=== PATIENT | male | born 1950 ===

== ENCOUNTER 2018-07-08 09:24 | Emergency (ER) | payer SELFPAY ==
[2018-07-08 11:15] LABS: SQUAMOUS EPITHIAL 41 /hpf (0-5); URINE BACTERIA OCC (<OCC); URINE BILIRUBIN NEGATIVE (NEGATIVE); URINE BLOOD NEGATIVE (NEGATIVE); URINE CLARITY Hazy (Clear); URINE COLOR Amber (YELLOW); URINE GLUCOSE (UA) NORMAL (Normal); URINE LEUKOCYTE ESTERASE 3+ Leu/uL (Negative); URINE PROTEIN NEGATIVE (NEGATIVE)
--- NOTE | 2018-07-08 11:26 | C.PDOC ---
History Of Present Illness 68-year-old male, presents to the ED for evaluation of increased urinary frequency for the last four years. Patient notices his symptoms especially at night, noting that he often has to use the bathroom multiple times. Patient denies fever, chills, dysuria, abdominal pain or flank pain. Patient reports past medical history of DM, but states his sugar is well controlled. Time Seen by Provider: 07/08/18 10:05 Chief Complaint (Nursing): Male Genitourinary History Per: Patient History/Exam Limitations: no limitations Onset/Duration Of Symptoms: Other (4 years ) Current Symptoms Are (Timing): Still Present Quality Of Discomfort: denies: "Pain" Associated Symptoms: Urinary Symptoms (urinary frequency ). denies: Fever, Chills Additional History Per: Patient Past Medical History Reviewed: Historical Data, Nursing Documentation, Vital Signs Vital Signs: Last Vital Signs Temp 99.2 F 07/08/18 11:37 Pulse 76 07/08/18 11:37 Resp 18 07/08/18 11:37 BP 156/90 H 07/08/18 11:37 Pulse Ox 96 07/08/18 21:39 - Medical History PMH: No Chronic Diseases Surgical History: No Surg Hx Family History: States: Unknown Family Hx - Social History Hx Alcohol Use: No Hx Substance Use: No Review Of Systems Constitutional: Negative for: Fever, Chills Gastrointestinal: Negative for: Abdominal Pain Genitourinary: Positive for: Frequency Musculoskeletal: Negative for: Other (flank pain ) Physical Exam - Physical Exam Appears: Non-toxic, No Acute Distress Skin: Normal Color, Warm, Dry Head: Atraumatic, Normacephalic Eye(s): bilateral: Normal Inspection Oral Mucosa: Moist Neck: Supple Chest: Symmetrical, No Deformity, No Tenderness Cardiovascular: Rhythm Regular, No Murmur Respiratory: Normal Breath Sounds, No Rales, No Rhonchi, No Wheezing Gastrointestinal/Abdominal: Soft, No Tenderness, No Guarding, No Rebound Back: No CVA Tenderness, No Vertebral Tenderness, No Paraspinal Tenderness Extremity: Normal ROM, Capillary Refill (less than 2 seconds ) Neurological/Psych: Oriented x3, Normal Speech, Normal Cognition ED Course And Treatment O2 Sat by Pulse Oximetry: 96 (on RA) Pulse Ox Interpretation: Normal Progress Note: Accucheck and urinalysis done. Results are within normal limits. On reassessment, patient is resting comfortably, showing no signs of distress and is stable for discharge. Patient is advised to follow up with urology within 1 week for further evaluation. Disposition Counseled Patient/Family Regarding: Studies Performed, Diagnosis, Need For Followup - Disposition Referrals: Andrey Ledesma Jr., MD [Staff Provider] - Disposition: HOME/ ROUTINE Disposition Time: 11:25 Condition: STABLE Additional Instructions: FOLLOW UP WITH UROLOGY WITHIN 1 WEEK RETURN TO ER IF SYMPTOMS WORSEN Forms: [facility] (Georgian), General Discharge Instructions Print Language: TUVALU[place] - Clinical Impression Clinical Impression: Urinary frequency - Scribe Statement The provider has reviewed the documentation as recorded by the Scribe (Mariangel Rowe) Provider Attestation: All medical record entries made by the Scribe were at my direction and personally dictated by me. I have reviewed the chart and agree that the record accurately reflects my personal performance of the history, physical exam, medical decision making, and the department course for this patient. I have also personally directed, reviewed, and agree with the discharge instructions and disposition.
[2018-07-08 11:37] VITALS: BP 156/90; PULSE 76; RESP 18; TEMP 99.2
[2018-07-08 21:36] VITALS: O2SAT 96
== END 2018-07-08 11:37 | disposition home or self-care (01) ==
LOC: C.ER 09:24
DX: R35.0 Frequency of micturition (principal)